=== PATIENT | female | born 1970 | race Caucasian/White ===

== ENCOUNTER 2022-10-30 15:48 | Outpatient (CLI) | payer OTHER, SELFPAY ==
--- NOTE | 2022-10-30 16:00 | CRLHL7_ITS ---
For Patients: As a result of the Century Cures Act, medical imaging exams and procedure reports are released immediately into your electronic medical record. You may view this report before your referring provider. If you have questions, please contact your health care provider. INDICATION: abdominal pain COMPARISON: none TECHNIQUE: 2D leija scale and color Doppler images were acquired of the pelvis using a transabdominal and transvaginal approach. FINDINGS: Sonographic images demonstrate a normal size and smooth outer contour of the uterus. Uterus measures 5.7 cm in length by 2.8 cm in AP diameter by 4.7 cm in transverse dimension. The myometrium has a heterogeneous echotexture. The endometrial lining appears normal and measures 4 mm in composite thickness. The ovaries are not visualized. There are no suspicious fluid collections within the cul-de-sac. IMPRESSION: Nonvisualization of the ovaries due to overlying bowel loops. Uterus is heterogeneous without fibroid. Dictated by Abdifatah Pierre MD @ 10/31/2022 11:24:17 AM (Electronically Signed)
== END 2022-10-30 15:49 | disposition home or self-care (01) ==
LOC: US 15:50
PROVIDERS: Visit Provider Obstetrics & Gynecology
DX: R10.32 Left lower quadrant pain (principal); K57.30 Diverticulosis of large intestine without perforation or abscess without bleeding
CPT/HCPCS: 76830; 76856

== ENCOUNTER 2022-11-01 14:21 | Outpatient (CLI) | payer OTHER, SELFPAY ==
--- NOTE | 2022-11-01 15:00 | CRLHL7_ITS ---
For Patients: As a result of the Century Cures Act, medical imaging exams and procedure reports are released immediately into your electronic medical record. You may view this report before your referring provider. If you have questions, please contact your health care provider. Indication: LLQ PAIN Technique: Postcontrast CT abdomen and pelvis. 95 cc Isovue 370 intravenous contrast. Please note that all CT scans at this facility use dose modulation, iterative reconstruction, and/or weight-based dosing when appropriate to reduce radiation dose to as low as reasonably achievable. Comparison: Pelvic ultrasound 10/30/2022 Findings: The lung bases are clear. The liver is unremarkable. Incidental focal fat deposition adjacent to the falciform ligament. The gallbladder is absent. Normal appearance of the biliary tree. The pancreas is within normal limits. Normal spleen. Normal bladder, ureters and kidneys. Tubal ligation device left adnexa. Left ovary appears normal. Normal uterus. Right ovary normal. The right-sided tubal ligation clip appears to be within the left lower quadrant fat anteriorly, series 2, image 89. No surrounding fluid collection or abscess. Mild colonic diverticulosis without diverticulitis. No evidence of epiploic appendagitis. No bowel obstruction. No evidence of inflammatory bowel disease. The appendix is normal. No abdominal or pelvic adenopathy. No fracture or abdominal wall hernia. Atherosclerotic changes within the aorta without dissection or aneurysm. A small hiatal hernia is present. Impression: Colonic diverticulosis. No diverticulitis. The right tubal ligation clip has migrated to the left lower quadrant anterior omental fat. No associated inflammatory changes. Normal ovaries. Please note that all CT scans at this facility use dose modulation, iterative reconstruction, and/or weight-based dosing when appropriate to reduce radiation dose to as low as reasonably achievable. Dictated by Abdifatah Pierre MD @ 11/01/2022 3:46:33 PM (Electronically Signed)
== END 2022-11-01 14:22 | disposition home or self-care (01) ==
PROVIDERS: PCP Family Medicine; Visit Provider Obstetrics & Gynecology
DX: R10.32 Left lower quadrant pain (principal); K57.30 Diverticulosis of large intestine without perforation or abscess without bleeding
CPT/HCPCS: 74177; Q9967

== ENCOUNTER 2023-06-24 07:30 | Outpatient (RCR) | payer OTHER, SELFPAY | END 2023-10-22 23:59 | disposition home or self-care (01) | PROVIDERS: PCP Family Medicine; Visit Provider Obstetrics & Gynecology | DX: N39.3 Stress incontinence (female) (male) (principal); R10.32 Left lower quadrant pain; R29.898 Other symptoms and signs involving the musculoskeletal system; Z51.89 Encounter for other specified aftercare | CPT/HCPCS: 97110; 97140; 97162; 97535 ==

== ENCOUNTER 2023-09-26 08:31 | Outpatient (CLI) | payer OTHER, SELFPAY ==
--- OUTSIDE RECORDS SUMMARY | 2023-09-26 08:36 | XMS_ITS | Encounter Summary ---
Author Name Unknown Organization [facility] Address [address] [place] [address] Care Team Providers Care Information Security Consultant Name Role Phone Angela Katiana Cardozo APRN, C.N.P., R.N. Primary Care Provider Unavailable Reason for Referral * Outpatient (Routine) - Authorized Specialty Diagnoses / Procedures Referred By Mino t Referred To Contact Damon Easton M.D. [address] [place] [address] [facility] Referral ID Status Reason Start Date Expiration Date V isits Requested Visits Authorized [id number] Authorized 09/21/2022 09/20/2025 1 1 R OPTICS SUPERVISOR Reason for Visit * Reason Comments Blood Pressure Check Encounter Details Date Type Department Care Team (Latest Contact Info) Description 09/21/2022 Clinical Communication Department of Family Medicine, [facility], in [place], [place] [address] [place] [address] Matt Pozo P.A.-C., P.A. [address] [place] [address] Blood Pressure Check Social History Tobacco Use Types Packs/Day Years Used Date Smoking Tobacco: Former E-cigarettes Smokeless Tobacco: Never Comments:Discontinued cigare tte [id number]. Alcohol Use Standard Drinks/Week Comments No 0 (1 standard drink = 0.6 oz pur e alcohol) Humiliation, Afraid, Rape, and Kick questionnair e Answer Date Recorded Within the last year, have y ou been afraid of your partner or ex-partner? No 09/24/2022 Within the last year, have y ou been humiliated or emotionally abused in other ways by your partner or ex-partner? No Within the last year, have y ou been kicked, hit, slapped, or otherwise physically hurt by your partner or ex-partner? No 09/24/2022 Within the last year, have y ou been raped or forced to have any kind of sexual activity by your partner or ex-partner? No 09/24/2022 Social Connection and Isolat ion Panel [NHANES] Answer Date Recorded In a typical week, how many times do you talk on the phone with family, friends, or neighbors? Once a week 09/24/2022 How often do you get togethe r with friends or relatives? Once a week 09/24/2022 How often do you attend chur or scientology services? More than 4 times per year 09/24/2022 Do you belong to any clubs o r organizations such as muslim groups, unions, fraternal or athletic groups, or school groups? Yes 09/24/2022 How often do you attend meet ings of the clubs or organizations you belong to? More than 4 times per year 09/24/2022 Are you , , di vorced, , never , or living with a partner? Living with partner 09/24/2022 AUDIT-C Answer Date Recorded Q1: How often do you have a drink containing alc ohol? Never 09/24/2022 Average Number of Drinks Not on file 023 Frequency of Binge Drinking Not on file 05/2023 Overall Financial Resource Strain (CARDIA) Answe r Date Recorded How hard is it for you to pa y for the very basics like food, housing, medical care, and heating? Not hard at all 09/24/2022 PHQ-2 Answer Date Recorded PHQ-2 Score 0 09/24/2022 [facility] - Occupational Stress Questionnaire Answer Date Recorded Do you feel stress - tense, restless, nervous, or anxious, or unable to sleep at night because your mind is troubled all the time - these days? Only a little 09/24/2022 Exercise Vital Sign Answer Date Recorde d On average, how many days pe r week do you engage in moderate to strenuous exercise (like a brisk walk)? 1 day 09/24/2022 On average, how many minutes do you engage in exercise at this level? 30 min 09/24/2022 Hunger Vital Sign Answer Date Recorded Within the past 12 months, y ou worried that your food would run out before you got the money to buy more. Never true 09/24/19 23 Within the past 12 months, t he food you bought just didn't last and you didn't have money to get more. Never true 09/24/2022 PRAPARE - Transportation Answer Date Re corded In the past 12 months, has l ack of transportation kept you from medical appointments or from getting medications? No 05/2023 In the past 12 months, has l ack of transportation kept you from meetings, work, or from getting things needed for daily living? No 09/24/2022 Housing Stability Vital Sign Answer Ulices e Recorded In the last 12 months, was t here a time when you were not able to pay the mortgage or rent on time? No 09/24/2022 In the last 12 months, how many places have you lived? 1 09/24/2022 In the last 12 months, was t here a time when you did not have a steady place to sleep or slept in a longterm (including now)? No 09/24/2022 Nutrition Answer Date Recorded Nutrition: EVOO Fat Source Yes 09/24 On average, how many serving s of fruits and vegetables do you eat per day (serving size is equal to 1 cup or approximately the size of a tennis ball)? 2-3 09/24/2022 Dental Answer Date Recorded Dental: Regular Dentist Yes 09/12/20 Employment Answer Date Recorded Employment status Employed and actively working without restrictions 09/24/2022 Education Answer Date Recorded What is the highest level of school you have completed or the highest degree you have received? Associate degree: academic program 07/17/2021 Sex and Gender Information Value Date Recorded Sex Assigned at Female 09/14/2017 3:47 PM FIBER OPTICS SUPERVISOR Gender Identity Female 09/14/2017 3:47 PM FIBER OPTICS SUPERVISOR Sexual Orientation Straight 09/14/2017 3: 47 PM FIBER OPTICS SUPERVISOR documented as of this encounter Plan of Treatment Scheduled Referrals Name Type Priority Associated Diagnoses Orde r Schedule Primary Care nurse visit (clinic) - [facility] Region; BP check; BP check only (INSIDE SALES SPECIALIST) Outpatient Referral Routine Expected: 09/24/2022, Expires: 12/21/2023 documented as of this encounter Visit Diagnoses Diagnosis Hypertension And Chronic Kidney Disease Stage 2- Primary documented in this encounter Additional Health Concerns Assessment Noted Time PHQ-9 Depression Total Score: 3 06/08/20 10 10:26 AM CDT documented as of this encounter Care Teams Information Security Consultant Relationship Specialty Start Date End Date Katiana Miller APRN, C.N.P., R.N. PCP - General Family Medicine 09/01/19 06/02/23 documented as of this encounter
--- OUTSIDE RECORDS SUMMARY | 2023-09-26 08:36 | XMS_ITS ---
Author Name Unknown Organization [facility] Address [address] [place] [address] Care Team Providers Care Car Cleaning Supervisor Name Role Phone Unavailable Unavailable Unavailable Surgery Details Not on file Complications Check Surgery Details section. Procedure Estimated Blood Loss Check Surgery Details section. Procedure Findings Check Surgery Details section. Procedure Specimens Taken Check Surgery Details section.
--- OUTSIDE RECORDS SUMMARY | 2023-09-26 08:36 | XMS_ITS | Encounter Summary ---
Author Name Unknown Organization [facility] Address [address] [place] [address] Care Team Providers Care All Terrain Vehicle Technician Name Role Phone Felipa Garay APRN, C.N.P., D.N.P. P [place] Care Provider Reason for Visit * Reason Comments Med Refill Encounter Details Date Type Department Care Team (Late st Contact Info) Description 09/07/2023 Refill Department of Family Medicine, [facility], in [place], [place] [address] [place] [address] Kanika Maria P.A.-C. [address] [place] [address] Med Refill Social History Tobacco Use Types Packs/Day Years Used Date Smoking Tobacco: Former E-cigarettes Smokeless Tobacco: Never Comments:Discontinued cigare tte [id number]. Alcohol Use Standard Drinks/Week Comments No 0 [...] 09/24/2022 How often do you attend chur ch or evangelical services? More than 4 times per year 09/24/2022 Do you belong to any clubs o r organizations such as congregational groups, unions, fraternal or athletic groups, or [...] Answer Date Recorded PHQ-2 Score 0 09/24/2022 [facility] - Occupational Stress [...] place to sleep or slept in a senior care (including now)? No 09/24/2022 Nutrition Answer Date [...] highest degree you have received? Associate degree: occupational, technical, or vocational program 09/24/2022 Sex and Gender Information Value Date Recorded Sex Assigned at Female 09/14/2017 3:47 PM RIVET TOSSER Gender Identity Female 09/14/2017 3:47 PM RIVET TOSSER Sexual Orientation Straight 09/14/2017 3: 47 PM RIVET TOSSER documented as of this encounter Miscellaneous Notes * Telephone Encounter - Brook Gentile - 09/10/2023 11:24 AM RIVET TOSSER Called and left a message for the patient to call T TOSSER * Telephone Encounter - Sara Esquivel - 09/10/2023 9:57 AM CST Lab Results Component Value Date TSH 0.8 09/12/2022 T TOSSER documented in this encounter Plan of Treatment Not on file documented as of this encounter Visit Diagnoses Diagnosis Hypothyroidism documented in this encounter Additional Health Concerns Assessment Noted Time PHQ-9 Depression Total Score: 3 06/08/20 10 10:26 AM CDT documented as of this encounter Care Teams All Terrain Vehicle Technician Relationship Specialty Start Date End Date Oswaldo-Felipa Loco APRN, C.N.P., D.N.P. [address] [address] PCP - General Family Medicine 08/27/23 documented as of this encounter
--- OUTSIDE RECORDS SUMMARY | 2023-09-26 08:36 | XMS_ITS | Encounter Summary ---
Author Name Unknown Organization [facility] Address [address] [place] [address] Care Team Providers Care Cutting Machine Tender Decorative Name Role Phone Felipa Garay APRN, C.N.P., D.N.P. P [facility] Care Provider Reason for Visit * Reason Comments Med Refill Encounter Details Date Type Department Care Team (Late st Contact Info) Description 09/07/2023 Refill Department of Family Medicine, [facility], in [place], [place] [address] [place] [address] Candido Flores M.B.B.S. MCharles [address] [place] [address] Med Refill Social History Tobacco Use Types Packs/Day Years Used Date Smoking Tobacco: Former E-cigarettes Smokeless Tobacco: Never Comments:Discontinued cigare tte [id number]. Alcohol Use Standard Drinks/Week Comments No 0 [...] How often do you attend chur or religion services? More than 4 times per year 09/24/2022 Do you belong to any clubs o r organizations such as mormonism groups, unions, fraternal or athletic groups, or [...] Answer Date Recorded PHQ-2 Score 0 09/24/2022 [facility] - Occupational [...] place to sleep or slept in a skilled nursing (including now)? No 09/24/2022 Nutrition Answer Date [...] Sex Assigned at Female 09/14/2017 3:47 PM LEGEND MAKER Gender Identity Female 09/14/2017 3:47 PM LEGEND MAKER Sexual Orientation Straight 09/14/2017 3: 47 PM LEGEND MAKER documented as of this encounter Miscellaneous Notes * Telephone Encounter - Brook Gentile - 09/10/2023 11:24 AM LEGEND MAKER Called and left a message for the patient to call ND MAKER documented in this encounter Plan of Treatment Not on file documented as of this encounter Visit Diagnoses Diagnosis Hypertension Essential Primary documented in this encounter Additional Health Concerns Assessment Noted Time PHQ-9 Depression Total Score: 3 06/08/20 10 10:26 AM CDT documented as of this encounter Care Teams Cutting Machine Tender Decorative Relationship Specialty Start Date End Date Oswaldo-Felipa Loco APRN, C.N.P., D.N.P. [address] [place] [phone] PCP - General Family Medicine 08/27/23 documented as of this encounter
--- OUTSIDE RECORDS SUMMARY | 2023-09-26 08:36 | XMS_ITS | Clinical Summary ---
Author Name Unknown Organization [facility] Address [address] [place] [address] Care Team Providers Care Deicer Kit Assembler Name Role Phone Felipa Garay APRN, C.N.P., D.N.P. P [facility] Care Provider Source Comments Patient records contain information from all sites at [facility]. For routine questions regarding patient records, call [phone] during business hours, M-F 8:00 AM - 5:00 PM Central Time. Record requests for emergency care only can be directed to [phone] at any time.[facility] Allergies No known active allergies Medications Medication Sig Dispensed Refills Start Date End Date Status ascorbic acid, vitamin C, (VITAMIN C) 100 mg tablet Take 100 mg by mouth daily. 0 Active zinc gluconate 50 mg tablet Take 50 mg by mouth daily with breakfast. 0 Active cholecalciferol (VITAMIN D3) 10 mcg (400 Unit) tablet Take 10 mcg by mouth daily. 0 Active famotidine (PEPCID) 20 mg tablet Take 1 tablet (20 mg total) by mouth daily as needed. 180 tablet 0 07/20/2021 Active aspirin 81 mg chewable tablet Chew 81 mg daily. 0 Active pyridoxine, vitamin B6, (vitamin B-6) 50 mg tablet Take 50 mg by mouth daily. 0 Active levothyroxine (SYNTHROID, LEVOTHROID) 100 mcg tabletIndications :Hypothyroidism take 1 tablet by mouth every day 30 tablet 0 09/10/2023 Active dilTIAZem CD (CARDIZEM CD/CARTIA XT) 180 mg 24 hr capsuleIndication s:Hypertension Essential Primary Take 1 capsule (180 mg total) by mouth daily. 30 capsule 0 09/10/2023 Active levothyroxine (SYNTHROID, LEVOTHROID) 100 mcg tabletIndications :Hypothyroidism TAKE 1 TABLET BY MOUTH EVERY DAY 90 tablet 3 09/18/2022 09/10/2023 Discontinued dilTIAZem CD (CARDIZEM CD/CARTIA XT) 180 mg 24 hr capsuleIndication s:Hypertension Essential Primary TAKE 1 CAPSULE BY MOUTH EVERY DAY 90 capsule 3 09/19/2022 09/10/2023 Discontinued dilTIAZem CD (CARDIZEM CD/CARTIA XT) 180 mg 24 hr capsuleIndication s:Hypertension Essential Primary take 1 capsule by mouth every day 90 capsule 3 09/10/2023 09/10/2023 Discontinued Active Problems Problem Noted Date Diagnosed Date Hypertension And Chronic Kidney Disease Stage 2 10/31/2018 Tinnitus Bilateral 10/31/2018 Dependence Nicotine 09/03/2017 Hyperlipidemia Mixed 09/03/2017 Hypothyroidism 09/03/2017 Gastroesophageal Reflux Disease 09/03/2017 Incontinence Urinary Stress Female 09/03/2017 Bunion Left 09/03/2017 Resolved Problems Problem Noted Date Diagnosed Date Resolved Date Palpitations 10/31/2018 09/01/2019 Abnormal Pap Smear Personal History 10/31/2018 09/01/2019 Pain Epigastric 10/21/2018 09/01/2019 Nausea 09/20/2018 09/01/2019 Acne 09/03/2017 09/01/2019 Vertigo 09/03/2017 09/01/2019 Overweight Body Mass Index 25-29.9 Adult 09/03/2017 09/01/2019 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 Screening Mammogram Breast Cancer 09/07/2023 Refill Department of Family Medicine, [facility], [address] [phone] Candido Flores M.B.B.SBlade, M.D. Med Refill 09/07/2023 Refill Department of Family Medicine, [facility], [address] [address] Kanika Maria P.A.-C. Med Refill from Last 3 Months Immunizations Name Administration Dates Next Due DTaP (Infanrix, Tripedia) 09/18/2006 Influenza, Injectable, Quadrivalent 07/09/2014 Influenza, Seasonal, Injectable 06/24/2013,07/08 Influenza, Unspecified 07/06/2015 Tdap 11/11/2019 influenza vaccine quad (FLUZ ONE/FLUARIX) (6 months and older)(PF) 09/01/2019 Family History Medical History Relation Name Comments Alcohol abuse Father Diabetes Father Cancer Maternal Grandfather Coronary artery disease Maternal Grandmother Dementia Maternal Grandmother Stroke Maternal Grandmother Thyroid disease Maternal Grandmother Assi sted-living resident No Known Problems Mother Breast cancer Mother's Sister No Known Problems Paternal Grandfather No Known Problems Paternal Grandmother Relation Name Status Comments Father Alive Maternal Grandfather Maternal Grandmother Alive Mother Alive Mother's Sister Paternal Grandfather Other Paternal Grandmother Other Social History Tobacco Use Types Packs/Day Years Used Date Smoking Tobacco: Former E-cigarettes Smokeless Tobacco: Never Tobacco Cessation:Counseling Given: Not Answered Comments:Discontinued cigarette [id number]. Alcohol Use Standard Drinks/Week Comments No 0 [...] often do you attend chur ch or rastafari services? More than 4 times per year 09/24/2022 Do you belong to any clubs o r organizations such as religious groups, unions, fraternal or athletic groups, or [...] Answer Date Recorded PHQ-2 Score 0 09/24/2022 [facility] - [...] place to sleep or slept in a usp (including now)? No 09/24/2022 Nutrition Answer Date [...] Sex Assigned at Female 09/14/2017 3:47 PM KNOCKER OFF Gender Identity Female 09/14/2017 3:47 PM KNOCKER OFF Sexual Orientation Straight 09/14/2017 3: 47 PM KNOCKER OFF Last Filed Vital Signs Vital Sign Reading Time Taken Comments Blood Pressure 123/83 09/24/2022 4:11 PM KNOCKER OFF average of 3 Pulse 76 09/24/2022 4:11 PM KNOCKER OFF Temperature 36 ??C (96.8 ??F) 07/20/2021 8:4 8 AM CDT Respiratory Rate 20 07/04/2021 1:56 PM CDT Oxygen Saturation 93% 07/04/2021 1:5 6 PM CDT Inhaled Oxygen Concentration - - Weight 79 kg (174 lb 2.6 oz) 07/20/2021 8:48 AM CDT Height 171 cm (5' 7.32) 07/20/2021 8:4 8 AM CDT Body Mass Index 27.02 07/20/2021 8:48 AM CDT Plan of Treatment Health Maintenance Due Date Last Done Comments CT Colonography 1971 Colonoscopy 1971 FIT 1971 HIV Screening 1971 Hepatitis B Vaccines (1 of 3 - 3-dose series) 1971 Hepatitis C Screening 1971 COVID-19 Vaccine (#1) 1971 Zoster Vaccines (1 of 2) 2021 Visit: Chronic Disease, age 18+ 07/20/2022 07/20/2021 Mammogram 12/05/2022 12/05/2021, 11/14, 11/09/2019, Additional history exists Influenza Vaccine (#1) 2023 9, 07/06/2015, 07/09/2014, Additional history exists Lipid (Cholesterol) Screening 09/12/2023 09/12/2022, 07/20/2021, 07/19/2020, Additional history exists Thyroid Stimulating Hormone (TSH) test for thyroid function 09/12/2023 09/12/2022, 07/20/2021, 04/12/2020, Additional history exists Depression Screening (Annual PHQ-2) 09/16/2023 Office Visit for Blood Pressure Check / Re-check 09/24/2023 09/24/2022 Cervical Cancer Screening 10/31/20232018, 10/31/2018, 09/03/2017, Additional history exists Fasting Glucose for Diabetes Screening 07/20/2024 07/20/2021, 11/09/2019, 06/16/2019, Additional history exists Cologuard 08/14/2024 08/14/2021, 07/31/2021 Colorectal Cancer Screening 08/14/2024 DTaP,Tdap,and Td Vaccines (3 - Td or Tdap) 11/11/2029 11/11/2019, 09/18/2006, 09/18/2006 Pneumococcal vaccine (0-64 years) Aged Out No longer eligible based on patient's age to complete this topic Medical Devices Implanted Type Area Construction Laborer Device Identifier Shelf Expiration Date Model / Serial / Lot Misc Other Misc Other Fallopian Tube Description:Tubal ligation c lips Care Teams Deicer Kit Assembler Relationship Specialty Start Date End Date [place]-Felipa Loco APRN, C.N.P., D.N.P. [address] [place] [phone] PCP - General Family Medicine 08/27/23
--- OUTSIDE RECORDS SUMMARY | 2023-09-26 08:36 | XMS_ITS | Referral Summary ---
Author Name Unknown Organization [facility] Address [address] [place] [address] Care Team Providers Care Trailer Steerer Name Role Phone Felipa Garay APRN, C.N.P., D.N.P. P [facility] Care Provider Source Comments Patient records contain information from all sites at [facility]. For routine questions regarding patient records, call [phone] during business hours, M-F 8:00 AM - 5:00 PM Central Time. Record requests for emergency care only can be directed to [phone] at any time.[facility] Encounters Date Type Department Care Team Description 09/17/2023 Orders Only [facility]CP [facility] MNT Felipa Garay APRN, C.N.P., D.N.P. Screening Mammogram Breast Cancer 09/07/2023 Refill Department of Family Medicine, [facility], in [address] [address] Candido Flores M.B.B.S., MTheresa. Med Refill 09/07/2023 Refill Department of Family Medicine, [facility], [address] [address] Kanika Maria P.A.-C. 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 Alcohol Use Standard Drinks/Week Comments No 0 [...] often do you attend chur ch or yarsanism services? More than 4 times per year 09/24/2022 Do you belong to any clubs o r organizations such as evangelical groups, unions, fraternal or athletic groups, or [...] place to sleep or slept in a alf (including now)? No 09/24/2022 Nutrition Answer Date [...] Sex Assigned at Female 09/14/2017 3:47 PM [employer] SALESPERSON Gender Identity Female 09/14/2017 3:47 PM [employer] SALESPERSON Sexual Orientation Straight 09/14/2017 3: 47 PM [employer] SALESPERSON Last Filed Vital Signs Vital Sign Reading Time Taken Comments Blood Pressure 123/83 09/24/2022 4:11 PM [employer]ERSON average of 3 Pulse 76 09/24/2022 4:11 PM [employer] Temperature 36 ??C (96.8 ??F) 07/20/2021 8:4 8 AM CDT Respiratory Rate 20 07/04/2021 1:56 PM CDT Oxygen Saturation 93% 07/04/2021 1:5 6 PM CDT Inhaled Oxygen Concentration - - Weight 79 kg (174 lb 2.6 oz) 07/20/2021 8:48 AM CDT Height 171 cm (5' 7.32) 07/20/2021 8:4 8 AM CDT Body Mass Index 27.02 07/20/2021 8:48 AM CDT Plan of Treatment Not on file Medical Devices Implanted Type Area Curriculum Assistant Principal Device Identifier Shelf Expiration Date Model / Serial / Lot Misc Other Misc Other Fallopian Tube Description:Tubal ligation c lips Care Teams Trailer Steerer Relationship Specialty Start Date End Date [place]-Felipa Loco APRN, C.N.P., D.N.P. [address] [place] [phone] PCP - General Family Medicine 08/27/23
--- OUTSIDE RECORDS SUMMARY | 2023-09-26 08:36 | XMS_ITS | Encounter Summary ---
Author Name Unknown Organization [facility] Address [address] [place] [address] Care Team Providers Care Charge Histotechnologist Name Role Phone Felipa Garay APRN, C.N.P., D.N.P. P [facility] Care Provider Encounter Details Date Type Department Care Team (Late st Contact Info) Description 09/17/2023 Orders Only [facility] MNT Felipa Garay, DEREK, C.N.P., D.N.P. [address] [place] [address] Screening Mammogram Breast Cancer Social History Tobacco Use Types Packs/Day Years Used Date Smoking Tobacco: Former E-cigarettes Smokeless Tobacco: Never Comments:Discontinued cigare tte [id number]. Alcohol Use Standard Drinks/Week Comments No 0 [...] any clubs o r organizations such as mosque groups, unions, fraternal or athletic groups, or [...] Answer Date Recorded PHQ-2 Score 0 09/24/2022 [facility] Occupat ional Health - Occupational Stress Questionnaire [...] Date Recorded Dental: Regular Dentist Yes 09/12/20 22 Employment Answer Date Recorded Employment status Employed and actively working without restrictions 09/24/2022 Education Answer Date Recorded What is the highest level of school you have completed or the highest degree you have received? Associate degree: occupational, technical, or vocational program 09/24/2022 Sex and Gender Information Value Date Recorded Sex Assigned at Female 09/14/2017 3:47 PM DIRECTOR [employer]ING Gender Identity Female 09/14/2017 3:47 PM DIRECTOR [employer]ING Sexual Orientation Straight 09/14/2017 3: 47 PM DIRECTOR IN[employer] BANKING documented as of this encounter Plan of Treatment Not on file documented as of this encounter Visit Diagnoses Diagnosis Screening Mammogram Breast Cancer documented in this encounter Additional Health Concerns Assessment Noted Time PHQ-9 Depression Total Score: 3 06/08/20 10 10:26 AM CDT documented as of this encounter Care Teams Charge Histotechnologist Relationship Specialty Start Date End Date Felipa Garay APRN, C.N.P., D.N.P. [address] [place] [phone] PCP - General Family Medicine 08/27/23 documented as of this encounter
--- OUTSIDE RECORDS SUMMARY | 2023-09-26 08:36 | XMS_ITS | Encounter Summary ---
Author Name Unknown Organization [facility] Address [address] [place] [address] Care Team Providers Care Salad Bar Clerk Name Role Phone Angela Katiana Cardozo APRN C.N.P., R.N. Primary Care Provider Unavailable Encounter Details Date Type Department Care Team (Late st Contact Info) Description 09/24/2022 Clinical Communication Department of Family Medicine, [facility], in [place], [place] [address] [place] [address] Damon Easton M.D. [address] [place] [address] Social History Tobacco Use Types Packs/Day Years Used Date Smoking Tobacco: Former E-cigarettes Smokeless Tobacco: Never Comments:Discontinued cigare tte [id number]. Alcohol Use Standard Drinks/Week Comments No 0 [...] often do you attend chur ch or episcopal services? More than 4 times per year 09/24/2022 Do you belong to any clubs o r organizations such as restorationist groups, unions, fraternal or athletic groups, or [...] Answer Date Recorded PHQ-2 Score 0 09/24/2022 [facility] Occupat ional Health - Occupational Stress [...] place to sleep or slept in a long-term (including now)? No 09/24/2022 Nutrition Answer Date [...] Sex Assigned at Female 09/14/2017 3:47 PM FORESTRY PATROLMAN Gender Identity Female 09/14/2017 3:47 PM FORESTRY PATROLMAN Sexual Orientation Straight 09/14/2017 3: 47 PM FORESTRY PATROLMAN documented as of this encounter Miscellaneous Notes * Telephone Encounter - Jayne Connell, L.P.N. - 10/01/2022 10:09 AM FORESTRY PATROLMAN SUBJECTIVE CHIEF COMPLAINT / REASON FOR CALL No chief complaint on file. PLAN The following information was provided: BP is adequate and to continue on the same management and recheck 6months to a year Information/Education: patient/caller able to teach back The following references were used: provider Dr Easton STRY PATROLMAN * Telephone Encounter - Juany Corcoran L.P.N. - 09/24/2022 4:22 PM FORESTRY PATROLMAN Carmen is seen today for a blood pressure visit as ordered by Dr. Easton. Visit was conducted in clinic. Today's blood pressure reading and prior two readings: BP Readings from Last 3 Encounters: 09/24/22 123/83 07/20/21 136/79 07/04/21 114/69 . Medication list was reconciled, and patient is taking their blood pressure medication as prescribed. The patient reports no acute symptoms of hypertension Based on today's readings: The provider will be notified of today's visit and the patient was dismissed STRY PATROLMAN documented in this encounter Plan of Treatment Not on file documented as of this encounter Visit Diagnoses Not on filedocumented in this encounter Additional Health Concerns Assessment Noted Time PHQ-9 Depression Total Score: 3 06/08/20 10 10:26 AM CDT documented as of this encounter Care Teams Salad Bar Clerk Relationship Specialty Start Date End Date Katiana Miller APRN, C.N.P., R.N. PCP - General Family Medicine 09/01/19 06/02/23 documented as of this encounter
== END 2023-09-26 08:32 | disposition home or self-care (01) ==
PROVIDERS: PCP Family Medicine; Visit Provider Family Medicine
DX: Z00.00 Encounter for general adult medical examination without abnormal findings (principal); E03.9 Hypothyroidism, unspecified; I10 Essential (primary) hypertension; E78.5 Hyperlipidemia, unspecified; R73.03 Prediabetes
CPT/HCPCS: 80053; 80061; 84443

== ENCOUNTER 2023-12-25 07:30 | Outpatient (CLI) | payer OTHER, SELFPAY | END 2023-12-25 07:31 | disposition home or self-care (01) | LOC: NFLDREF 12-27 06:10 | PROVIDERS: PCP Family Medicine; Referring Provider Family Medicine; Visit Provider Family Medicine | DX: E78.5 Hyperlipidemia, unspecified (principal); R73.03 Prediabetes | CPT/HCPCS: 80061 ==

== ENCOUNTER 2024-01-30 15:29 | Outpatient (CLI) | payer OTHER, SELFPAY ==
--- NOTE | 2024-01-30 15:40 | MM_ITS ---
Patient: FRANCI BELL Facility:?[facility] Patient ID:?[id number] Site Patient ID:?[id number] Site :?1970 Study:?XRay-Breast Bilateral 3D W/CAD-01/30/2024 4:16:57 PM Ordering Physician:Duncan Final Report: BILATERAL DIGITAL SCREENING MAMMOGRAM WITH COMPUTER-AIDED DETECTION AND TOMOSYNTHESIS CLINICAL HISTORY: Routine screening exam. COMPARISON: 12/05/2021, 12/02/2020, 11/09/2019 TECHNIQUE: Digital mammogram in CC and MLO projections including computer-aided detection (CAD). Tomosynthesis was used in this interpretation. BREAST COMPOSITION: There are scattered areas of fibroglandular density. FINDINGS: RIGHT Breast: Focal asymmetric density retroareolar plane, 5 cm from the nipple. LEFT Breast: No suspicious findings. IMPRESSION: RIGHT breast asymmetry/mass. RECOMMENDATIONS: Additional mammographic views of the RIGHT breast including 3D spot compression CC/MLO. RIGHT breast ultrasound may also be required. The [facility] will contact the patient. A lay language report of this examination will be provided to the patient. BI-RADS Category 0: Incomplete: Need Additional Imaging Evaluation and/or Prior Mammograms for Comparison Dictated by Abdifatah Pierre MD @ 02/03/2024 9:11:09 AM CRL:[email or web address] RD/Dictated by: Abdifatah Pierre MD @ 02/03/2024 9:11:00 AM Signed by:?Abdifatah Pierre MD @02/03/2024 12:06:27 PM (Electronic Signature)
== END 2024-01-30 15:30 | disposition home or self-care (01) ==
LOC: MAMMO 15:29
PROVIDERS: PCP Family Medicine; Visit Provider Family Medicine
DX: Z12.31 Encounter for screening mammogram for malignant neoplasm of breast (principal); N63.10 Unspecified lump in the right breast, unspecified quadrant
CPT/HCPCS: 77063; 77067

== ENCOUNTER 2024-02-17 10:31 | Outpatient (CLI) | payer OTHER, SELFPAY ==
--- NOTE | 2024-02-17 10:45 | CRLHL7_ITS ---
For Patients: As a result of the Cures Act, medical imaging exams and procedure reports are released immediately into your electronic medical record. You may view this report before your referring provider. If you have questions, please contact your health care provider. DIGITAL DIAGNOSTIC RIGHT MAMMOGRAM USING TOMOSYNTHESIS AND COMPUTER-AIDED DETECTION RIGHT BREAST ULTRASOUND CLINICAL HISTORY: RIGHT breast mass/asymmetry. COMPARISON: 01/28/2023, 01/30/2024. TECHNIQUE: Digital RIGHT mammogram in two projections with computer-aided detection. Tomosynthesis was used in this interpretation. Real-time ultrasound imaging of RIGHT breast with imaging documentation. Scanning was performed by both the technologist and the radiologist. BREAST COMPOSITION: There are areas of scattered fibroglandular density. FINDINGS: 3D spot compression CC/MLO RIGHT breast mammogram images submitted. Decreased conspicuity of previously noted asymmetric density in the retroareolar plane RIGHT breast. No architectural distortion or suspicious calcifications. Targeted RIGHT breast ultrasound performed in the retroareolar region. Normal fibroglandular tissue is present. No suspicious mass or fibrocystic change. IMPRESSION: No suspicious findings. No evidence of malignancy. RECOMMENDATIONS: Annual bilateral screening mammography. Results and recommendations discussed with the patient. BI-RADS Category 2: Benign A lay language report of this examination will be provided to the patient. Dictated by Abdifatah Pierre MD @ 02/17/2024 11:32:17 AM /Dictated by: Abdifatah Pierre MD @ 02/17/2024 11:32:00 AM (Electronically Signed)
--- NOTE | 2024-02-17 11:15 | CRLHL7_ITS ---
For Patients: As a result of the Cures Act, medical imaging exams and procedure reports are released immediately into your electronic medical record. You may view this report before your referring provider. If you have questions, please contact your health care provider. PLEASE SEE DIGITAL DIAGNOSTIC RIGHT MAMMOGRAM PERFORMED SAME DAY CRL:[email or web address] montalvo/Dictated by: Abdifatah Pierre MD @ 02/17/2024 12:16:00 PM (Electronically Signed)
== END 2024-02-17 10:32 | disposition home or self-care (01) ==
LOC: MAMMO 10:32
PROVIDERS: PCP Family Medicine; Visit Provider Family Medicine
DX: N63.10 Unspecified lump in the right breast, unspecified quadrant (principal); R92.8 Other abnormal and inconclusive findings on diagnostic imaging of breast
CPT/HCPCS: 76642; 77065; G0279

== ENCOUNTER 2024-09-22 07:35 | Outpatient (CLI) | payer OTHER, SELFPAY | END 2024-09-22 07:36 | disposition home or self-care (01) | LOC: NFLDREF 09-23 01:45 | PROVIDERS: PCP Family Medicine; Referring Provider Family Medicine; Visit Provider Family Medicine | DX: E78.5 Hyperlipidemia, unspecified (principal); I10 Essential (primary) hypertension; R73.03 Prediabetes; E03.9 Hypothyroidism, unspecified | CPT/HCPCS: 80053; 80061; 84443 ==

== ENCOUNTER 2025-03-29 07:30 | Outpatient (CLI) | payer OTHER, SELFPAY | END 2025-03-29 07:31 | disposition home or self-care (01) | LOC: NFLDREF 03-30 14:51 | PROVIDERS: PCP Family Medicine; Referring Provider Family Medicine; Visit Provider Family Medicine | DX: E78.5 Hyperlipidemia, unspecified (principal); E03.9 Hypothyroidism, unspecified; R73.03 Prediabetes; E50.9 Vitamin A deficiency, unspecified; I10 Essential (primary) hypertension; E66.9 Obesity, unspecified; Z68.33 Body mass index [BMI] 33.0-33.9, adult | CPT/HCPCS: 80053; 80061; 82306; 84443 ==

== ENCOUNTER 2025-05-04 06:30 | Day surgery (SDC) | payer OTHER, SELFPAY ==
[2025-05-04] VITALS (7 sets, daily range): BP systolic 123–145; BP diastolic 69–98; PULSE 75–84; RESP 18–20; TEMP 36.6; O2SAT 94–97; BMI 32.8
[2025-05-04] MEDS: BUPIVACAINE 0.5 %/EPI 1:200K INJECTION (07:10)
[2025-05-04] MEDS: LIDOCAINE 2%-EPI 1:200,000 20 ML INFILTRATI (07:10)
--- NOTE | 2025-05-04 08:00 | PM.ORPRC ---
Procedure Note Date of procedure: 05/04/25 Procedure: Preop diagnosis: Right hand middle finger stenosing tenosynovitis Postop diagnosis: Right hand middle finger stenosing tenosynovitis Procedure: Right hand middle finger A1 yaakov release Anesthesia: Local Surgeon: Rivera Philip MD assistant fitness manager: DOMINGUEZ Weinstein EBL: 2mL Complications: None Specimens: None Drains: None Preoperative antibiotics: Ancef 2 g Indications: The patient has a history of right upper extremity middle finger painful catching and locking. Despite appropriate non operative management including flexor tendon sheath corticosteroid injections they continue to have symptoms. Operative intervention was recommended. The risks, benefits alternatives and expected outcomes were discussed in detail. These included but were not limited to: Infection, bleeding, injury to blood vessel or nerve, venous thromboembolism. All questions were answered to their satisfaction. The patient was placed supine on the operating room table. Local anesthesia was established with 0.5% Marcaine with epinephrine and 2% lidocaine with epinephrine. The hand was prepped and draped in usual sterile fashion. A transverse incision was made centered over the base of the middle finger just distal to the distal palmar crease. Subcutaneous dissection was taken through the palmar fascia to the flexor tendons with the tenotomy scissors. The A1 yaakov was released with the tenotomy scissors. Active flexion and extension of the finger shows no catching or locking, no bowstringing of the flexor tendons. The wound was closed with interrupted nylon sutures. A dry dressing was applied. Sponge and needle counts were correct x 2. The patient tolerated the procedure well, there were no apparent complications. They were sent to same day surgery in satisfactory condition. Plan: Use of the hand as tolerates. Discontinue the intraoperative dressing on postoperative day 3 and may get the wound wet as tolerates. Follow up in the office in 2 weeks for a wound check and suture removal.
== END 2025-05-04 08:20 | disposition home or self-care (01) ==
LOC: OR 06:31
PROVIDERS: PCP Family Medicine; Visit Provider Orthopaedic Surgery
PROC: (CPT 26055; principal; 2025-05-04 07:45)
DX: M65.331 Trigger finger, right middle finger (principal); M65.841 Other synovitis and tenosynovitis, right hand
CPT/HCPCS: 26055; J3490

== ENCOUNTER 2025-06-11 10:02 | Outpatient (CLI) | payer OTHER, SELFPAY ==
--- NOTE | 2025-06-11 10:15 | CRLHL7_ITS ---
For Patients: As a result of the Century Cures Act, medical imaging exams and procedure reports are released immediately into your electronic medical record. You may view this report before your referring provider. If you have questions, please contact your health care provider. INDICATION: BILATERAL SCREENING MAMMOGRAM, ASYMPTOMATIC 55 Y/O FEMALE COMPARISON: 02/17/2024, 01/30/2024, 01/28/2023 TECHNIQUE: Digital mammogram in CC and MLO projections including computer-aided detection (CAD) and tomosynthesis. BREAST COMPOSITION: There are scattered areas of fibroglandular density. FINDINGS: No suspicious findings. ASSESSMENT: BI-RADS 1 Negative RECOMMENDATION: Annual screening mammogram. A lay language report of this examination will be provided to the patient. Dictated by: Abdifatah Pierre MD @ 06/11/2025 10:56:30 (Electronically Signed)
== END 2025-06-11 10:03 | disposition home or self-care (01) ==
LOC: MAMMO 10:03
PROVIDERS: PCP Family Medicine; Visit Provider Family Medicine
DX: Z12.31 Encounter for screening mammogram for malignant neoplasm of breast (principal)
CPT/HCPCS: 77063; 77067